=== PATIENT | male | born 1955 | race Caucasian/White ===

== ENCOUNTER 2017-01-10 19:28 | Emergency (ER) | payer OTHER ==
[~2017-01-10] VITALS: Ht 170.2 cm; Wt 129.5 kg
[~2017-01-10 19:28] MED LIST: LEVO100T87 PO; LEVO200T6 PO
[2017-01-10 19:57] VITALS: Ht 170.2 cm; Wt 129.5 kg
[2017-01-10] MEDS ORDERED: HYDR-902 PO (20:24)
[2017-01-10] MEDS ORDERED: IBUP-1542 PO (20:24)
[2017-01-10] MEDS ORDERED: PEN500 PO (20:24)
[2017-01-10 20:52] VITALS: BP 168/95; PULSE 82; RESP 22; TEMP 98.3
--- NOTE | 2017-01-10 21:44 | ERD ---
ER Documentation Chief Complaint Date/Time DATE: 01/10/17 TIME: 21:43 Chief Complaint RT SIDED TOOTHACHE SINCE MONDAY. HX DENTAL ABSCESS HPI 61-year-old male presents to the emergency department with right sided lower tooth pain that started 2 days ago, and swelling. He states that he is going to try seek to see a dentist tomorrow however comes in due to pain after taking ibuprofen 600 mg. He has no trouble swallowing, voice changes, drooling. He denies any fevers. ROS All systems reviewed and are negative except as per history of present illness. Medications Home Meds Active Scripts Ibuprofen* (Motrin*) 600 Mg Tab, 600 MG PO Q6, #30 TAB Prov:ALIVIA DE ANDA PA-C 01/10/17 Penicillin V Potassium* (Penicillin V K*) 500 Mg Tab, 500 MG PO QID for 10 Days , TAB Prov:ALIVIA DE ANDA PA-C 01/10/17 Hydrocodone/Acetaminophen ([place] 10-325 Tablet) 1 Each Tablet, 1 TAB PO Q6H Y for PAIN, #7 TAB Prov:ALIVIA DE ANDA PA-C 01/10/17 Reported Medications Levothyroxine Sodium* (Levothyroxine Sodium*) 200 Mcg Tablet, 200 MCG PO BEFORE BREAKFAST, #30 TAB PER PT TAKES 200 MCG BY MOUTH MONDAY AND MONDAY TAKES 100 MCG MONDAY TO FRIDAYS 01/20/16 Levothyroxine Sodium* (Levothyroxine Sodium*) 100 Mcg Tablet, 100 MCG PO BEFORE BREAKFAST, #30 TAB PER PT TAKES LEVOTHYROXINE 100 MCG BY MOUTH FROM MONDAY TO MONDAY AND ALTERNATES WITH 200 MCG ON MONDAY AND MONDAY 01/20/16 Allergies Allergies: Coded Allergies: No Known Allergy (Unverified , 08/03/16) PMhx/Soc History of Surgery: Yes (APPENDECTOMY,TONSILECTOMNY,LEFT ELBOW,CARPAL TUNNEL) Anesthesia Reaction: No Hx Neurological Disorder: No Hx Respiratory Disorders: No Hx Cardiac Disorders: No Hx Psychiatric Problems: No Hx Miscellaneous Medical Probl: Yes (HYPOTHYROID) Hx Alcohol Use: No Hx Substance Use: No Hx Tobacco Use: No Smoking Status: Never smoker Physical Exam Vitals Vital Signs Date Time Temp Pulse Resp B/P Pulse Ox O2 Delivery O2 Flow Rate FiO2 01/10/17 20:52 98.3 82 22 168/95 98 Room Air 01/10/17 19:57 98.9 80 16 169/89 98 Physical Exam General: Well-developed, well-nourished. The patient appears in no acute distress. HEENT: Head is normocephalic, atraumatic. No scleral icterus. Right lower molar is intact, the tooth adjacent to this is a tender tooth with palpation, there is slight swelling on the right cheek, there is no trismus, voice changes , drooling, oropharynx is clear. Neck: Supple. Nontender. Lungs: Clear to auscultation. Normal air movement. Heart: Regular rate and rhythm. S1 and S2 are normal. No murmurs, gallops, or rubs. Abdomen: Nondistended. Extremities: No clubbing or cyanosis. Moving extremities x 4. No weakness. Neurologic: Alert and oriented 3. No focal deficits. Normal speech and gait. Skin: Normal turgor. No rash or lesions. Procedures/MDM 61-year-old male comes in with a dental infection, differential diagnosis includes gingivitis, tooth abscess, Denzel's angina, retropharyngeal abscess, peritonsillar abscess and among others. There are no signs of any airway threatening process, patient is able to speak, small and open mouth fully without any difficulty. He will be given antibiotics, pain medication and was advised to follow-up with a dentist tomorrow. Patient's blood pressure was elevated (>120/80) but appears stable without evidence of hypertension emergency or urgency. The patient was counseled about the risks of hypertension and urged to pursue outpatient monitoring and therapy within a week with their primary care physician. Departure Diagnosis: Primary Impression: Toothache Condition: Good Patient Instructions: Dental Abscess Additional Instructions: Follow-up with your dentist tomorrow. Return sooner for any worsening or new symptoms. ALIVIA DE ANDA PA-C Jan 10, 2017 21:44
== END 2017-01-10 20:51 | disposition home or self-care (01) ==
LOC: FTE 19:28
DX: K08.89 Other specified disorders of teeth and supporting structures (principal); E03.9 Hypothyroidism, unspecified
CPT/HCPCS: 99284

== ENCOUNTER 2017-02-09 19:53 | Emergency (ER) | payer OTHER ==
[~2017-02-09] VITALS: Ht 167.6 cm; Wt 122.7 kg
[~2017-02-09 19:53] MED LIST changes: +HYDR-902 PO; +IBUP-1542 PO; +PEN500 PO
[2017-02-09 19:54] VITALS: Ht 167.6 cm; Wt 122.7 kg
[2017-02-09] MEDS ORDERED: ALBUTEROL 0.083% (NEB) 2.5 MG/3 ML AMP HHN STA ×2 (20:54→22:24)
[2017-02-09] MEDS ORDERED: predniSONE 20 MG TAB PO ONE (21:00)
[2017-02-09] MEDS ORDERED: IPRATROPIUM (NEB) 0.5 MG/2.5 ML AMP HHN ONE ×2 (21:00→22:30)
[2017-02-09] MEDS ORDERED: ACETAMINOPHEN 325 MG TAB PO ONE (21:30)
--- NOTE | 2017-02-09 22:13 | RADRPT ---
PROCEDURE: XR Chest. CLINICAL INDICATION: cough TECHNIQUE: Single frontal view of the chest was obtained. COMPARISON: None available FINDINGS: The cardiomediastinal silhouette is normal size. Pulmonary vasculature is within normal limits. Th ere is right mid lung atelectasis or minor fissure pleural thickening.. No signs of pleural fluid or pneumothorax are seen. The osseous structures and soft tissues are unre markable. IMPRESSION: No visualized consolidation or edema. Right mid lung atelectasis or minor fissure pleural thickenin g. RPTAT: HBST .Hermilo Carson MD, Date Time Electronically viewed and signed by .Hermilo Carson MD, on 02/09/2017 22:13 .T/
[2017-02-09] MEDS ORDERED: SOD CHLORIDE 0.9% 1,000 ML IV ONE (22:30)
[2017-02-09] MEDS ORDERED: IBUPROFEN 600 MG TAB PO ONE (22:30)
[2017-02-09 23:15] LABS: ADD SCAN DIFF NO
[2017-02-09 23:17] LABS: BASOPHILS % 0.2 % (0.0-2.0); HEMATOCRIT 41.8 % (42.0-52.0); HEMOGLOBIN 14.2 g/dl (14.0-18.0); LYMPHOCYTES # 0.9 10^3/ul (0.8-2.9); LYMPHOCYTES % 7.2 % (15.0-51.0); MEAN CORPUSCULAR HEMOGLOBIN 31.1 pg (29.0-33.0); MEAN CORPUSCULAR VOLUME 91.7 fl (82.0-101.0); MEAN PLATELET VOLUME 10.4 fl (7.4-10.4); MONOCYTE # 0.7 10^3/ul (0.3-0.9); MONOCYTES % 5.6 % (0.0-11.0); NEUTROPHIL # 10.6 10^3/ul (1.6-7.5); NEUTROPHILS % 86.7 % (39.0-77.0); PLATELET COUNT 220 10^3/UL (140-415); RED BLOOD COUNT 4.56 10^6/ul (4.70-6.10); RED CELL DISTRIBUTION WIDTH 13.3 % (11.5-14.5); WHITE BLOOD COUNT 12.3 10^3/ul (4.8-10.8)
[2017-02-09 23:34] LABS: PROTIME 13.2 Sec (12.2-14.2)
[2017-02-09 23:36] LABS: ALBUMIN 4.8 g/dl (3.3-4.9); CHLORIDE 92 mmol/L (97-110); POTASSIUM 3.7 mmol/L (3.5-5.1); SODIUM 134 mmol/L (135-144)
[2017-02-09 23:38] LABS: ANION GAP 20 (8-16); BILIRUBIN,INDIRECT 0.5 mg/dl (0-1.1); BILIRUBIN,TOTAL 0.5 mg/dl (0.2-1.3); CARBON DIOXIDE 26 mmol/L (21-31); CREATININE 0.86 mg/dl (0.61-1.24)
[2017-02-09 23:39] LABS: ALANINE AMINOTRANSFERASE 48 IU/L (13-69); ALBUMIN/GLOBULIN RATIO 1.29; ALKALINE PHOSPHATASE 69 IU/L (42-121); ASPARTATE AMINO TRANSFERASE 41 IU/L (15-46); BLOOD UREA NITROGEN 11 mg/dl (7-20); CALCIUM 8.9 mg/dl (8.4-10.2); GLUCOSE 159 mg/dl (70-220); TOTAL PROTEIN 8.5 g/dl (6.1-8.1)
[2017-02-09 23:50] LABS: TROPONIN-I < 0.012 ng/ml (0.00-0.12)
[2017-02-10] MEDS ORDERED: PRED20TA PO
[2017-02-10] MEDS ORDERED: ALBU2.5V3 NEB (00:01)
[2017-02-10] MEDS ORDERED: AZIT250T94 PO (00:01)
--- NOTE | 2017-02-10 00:08 | ERD ---
ER Documentation Chief Complaint Date/Time DATE: 02/10/17 TIME: 00:03 Chief Complaint SOB WITH FEVER, COUGH/FLU-LIKE SX X FEW DAYS, HX ASTHMA, RR EVEN/UNLABORED HPI This patient is a 61-year-old male with past medical history of asthma presenting to the emergency department with shortness of breath, fever, cough, ongoing for the past 3 days. Additionally the patient has had shortness of breath for 1 week when walking from his home office to his kitchen in his house. The patient is taking albuterol at home with only mild relief of symptoms. The patient denies urinary symptoms, nausea, vomiting, diarrhea, or other symptoms at this time. ROS All systems reviewed and are negative except as per history of present illness. Medications Home Meds Active Scripts Albuterol Sulfate* (Albuterol Sulfate* Neb) 0.083%-3 Ml Neb, 2.5 MG NEB Q4 Y for SHORTNESS OF BREATH, #30 EA Prov:STEPHY SPANN PA-C 02/10/17 Azithromycin* (Zithromax*) 250 Mg Tablet, 250 MG PO .ZPACK DIRECTED, #6 TAB TAKE 500 MG (2 TABS) THE FIRST DAY THEN 250 MG (1 TAB) DAYS 2-5 Prov:STEPHY SPANN PA-C 02/10/17 Prednisone* (Prednisone*) 20 Mg Tab, 40 MG PO DAILY for 5 Days, #10 TAB Prov:STEPHY SPANN PA-C 02/10/17 Ibuprofen* (Motrin*) 600 Mg Tab, 600 MG PO Q6, #30 TAB Prov:ALIVIA DE ANDA PA-C 01/10/17 Penicillin V Potassium* (Penicillin V K*) 500 Mg Tab, 500 MG PO QID for 10 Days , TAB Prov:ALIVIA DE ANDA PA-C 01/10/17 Hydrocodone/Acetaminophen ([place] 10-325 Tablet) 1 Each Tablet, 1 TAB PO Q6H Y for PAIN, #7 TAB Prov:ALIVIA DE ANDA PA-C 01/10/17 Reported Medications Levothyroxine Sodium* (Levothyroxine Sodium*) 200 Mcg Tablet, 200 MCG PO BEFORE BREAKFAST, #30 TAB PER PT TAKES 200 MCG BY MOUTH MONDAY AND MONDAY TAKES 100 MCG MONDAY TO FRIDAYS 01/20/16 Levothyroxine Sodium* (Levothyroxine Sodium*) 100 Mcg Tablet, 100 MCG PO BEFORE BREAKFAST, #30 TAB PER PT TAKES LEVOTHYROXINE 100 MCG BY MOUTH FROM MONDAY TO MONDAY AND ALTERNATES WITH 200 MCG ON MONDAY AND MONDAY 01/20/16 Allergies Allergies: Coded Allergies: No Known Allergy (Unverified , 08/03/16) PMhx/Soc History of Surgery: Yes (APPENDECTOMY,TONSILECTOMNY,LEFT ELBOW,CARPAL TUNNEL) Anesthesia Reaction: No Hx Neurological Disorder: No Hx Respiratory Disorders: No Hx Cardiac Disorders: No Hx Psychiatric Problems: No Hx Miscellaneous Medical Probl: Yes (HYPOTHYROID) Hx Alcohol Use: No Hx Substance Use: No Hx Tobacco Use: No Smoking Status: Never smoker FmHx Noncontributory for chief complaint Physical Exam Vitals Vital Signs Date Time Temp Pulse Resp B/P Pulse Ox O2 Delivery O2 Flow Rate FiO2 02/09/17 22:46 2.0 02/09/17 22:45 103 24 96 Nasal Cannula 2.0 02/09/17 21:22 100.9 28 02/09/17 21:03 88 24 93 21 02/09/17 19:54 101.5 97 20 153/71 96 Physical Exam Const: The patient is in mild distress secondary to difficulty breathing. Head: Atraumatic Eyes: Normal Conjunctiva ENT: Normal External Ears, Nose and Mouth. Neck: Full range of motion..~ No meningismus. Resp: The patient has inspiratory and expiratory wheezing to all lung smyth. There are no crackles auscultated. There are no retractions. Cardio: Regular rate and rhythm, no murmurs Abd: Soft, non tender, non distended. Normal bowel sounds Skin: No petechiae or rashes Back: No midline or flank tenderness Ext: No cyanosis, or edema Neur: Awake and alert Psych: Normal Mood and Affect Result Diagram: 02/09/17 2305 02/09/17 2305 Results 24 hrs Laboratory Tests Test 02/09/17 23:05 White Blood Count 12.310^3/ul Red Blood Count 4.5610^6/ul Hemoglobin 14.2g/dl Hematocrit 41.8% Mean Corpuscular Volume 91.7fl Mean Corpuscular Hemoglobin 31.1pg Mean Corpuscular Hemoglobin Concent 34.0g/dl Red Cell Distribution Width 13.3% Platelet Count 17306^3/UL Mean Platelet Volume 10.4fl Neutrophils % 86.7% Lymphocytes % 7.2% Monocytes % 5.6% Eosinophils % 0.0% Basophils % 0.2% Nucleated Red Blood Cells % 0.0/100WBC Neutrophils # 10.610^3/ul Lymphocytes # 0.910^3/ul Monocytes # 0.710^3/ul Eosinophils # 0.010^3/ul Basophils # 0.010^3/ul Nucleated Red Blood Cells # 0.010^3/ul Prothrombin Time 13.2Sec Prothrombin Time Ratio 1.0 INR International Normalized Ratio 1.00 Activated Partial Thromboplast Time 28.0Sec Sodium Level 134mmol/L Potassium Level 3.7mmol/L Chloride Level 92mmol/L Carbon Dioxide Level 26mmol/L Anion Gap 20 Blood Urea Nitrogen 11mg/dl Creatinine 0.86mg/dl Glucose Level 159mg/dl Lactic Acid Level 2.2mmol/L Calcium Level 8.9mg/dl Total Bilirubin 0.5mg/dl Direct Bilirubin 0.00mg/dl Indirect Bilirubin 0.5mg/dl Aspartate Amino Transf (AST/SGOT) 41IU/L Alanine Aminotransferase (ALT/SGPT) 48IU/L Alkaline Phosphatase 69IU/L Troponin I < 0.012ng/ml Total Protein 8.5g/dl Albumin 4.8g/dl Globulin 3.70g/dl Albumin/Globulin Ratio 1.29 Lipase 51U/L Current Medications Medications (Trade) Dose Ordered Sig/Isaac Route PRN Reason Start Time Stop Time Status Last Admin Dose Admin Prednisone (Prednisone) 40 mg ONCE ONCE PO 02/09/17 21:00 02/09/17 21:01 DC 02/09/17 21:18 Albuterol (Proventil 0.083% (Neb)) 2.5 mg ONCE STAT N 02/09/17 20:54 02/09/17 20:56 DC 02/09/17 21:03 Ipratropium Banner (Atrovent 0.02% (Neb)) 0.5 mg ONCE ONCE N 02/09/17 21:00 02/09/17 21:01 DC 02/09/17 21:03 Acetaminophen (Tylenol Tab) 650 mg ONCE ONCE PO 02/09/17 21:30 02/09/17 21:31 DC 02/09/17 21:30 Albuterol (Proventil 0.083% (Neb)) 2.5 mg ONCE STAT HHN 02/09/17 22:24 02/09/17 22:26 DC 02/09/17 22:44 Ipratropium [place]anner (Atrovent 0.02% (Neb)) 0.5 mg ONCE ONCE HHN 02/09/17 22:30 02/09/17 22:31 DC 02/09/17 22:44 Ibuprofen 600 mg 600 mg ONCE ONCE PO 02/09/17 22:30 02/09/17 22:31 DC 02/09/17 22:38 Sodium Chloride (NS) 1,000 ml @ 1,000 mls/hr Q1H ONCE IV 02/09/17 22:30 02/09/17 23:29 DC 02/09/17 22:40 Procedures/[facility] EMERGENCY DEPARTMENT COURSE / MEDICAL DECISION MAKING: This is a 61-year-old male who comes to the emergency room secondary to complaints of shortness of breath, cough, fevers, wheezing. The patient was given medication nebulizer, p.o. Tylenol and ibuprofen, and prednisone in the department. On re-evaluation, the patient was feeling improved. Temperature reduced in the department. Lab results reviewed and showed slight leukocytosis with left shift but not significant. Radiology: PROCEDURE: XR Chest. CLINICAL INDICATION: cough TECHNIQUE: Single frontal view of the chest was obtained. COMPARISON: None available FINDINGS: The cardiomediastinal silhouette is normal size. Pulmonary vasculature is within normal limits. There is right mid lung atelectasis or minor fissure pleural thickening.. No signs of pleural fluid or pneumothorax are seen. The osseous structures and soft tissues are unremarkable. IMPRESSION: No visualized consolidation or edema. Right mid lung atelectasis or minor fissure pleural thickening. RPTAT: HBST .Hermilo Carson MD, MD Date Time Electronically viewed and signed by .Hermilo Carson MD, on 02/09/2017 22:13 .T/ CC: STEPHY SPANN PA-C EKG: Interpreted by ED physician Rate/Rhythm: Sinus tachycardia with a rate of [address] bpm. QRS, ST, T-waves: [No changes consistent w/ acute ischemia] Impression: [No evidence of ischemia or arrhythmia] The primary diagnosis is cough. Secondary diagnosis is wheezing. Other diagnosis includes bronchitis. I have low suspicion for acute coronary ischemia, status asthmaticus, pneumothorax, pulmonary embolism, septicemia, or other emergent conditions at this time. This case was discussed with Dr. Jennifer Bah, who agreed with the ED course. Discharge: I have discussed the lab results and diagnostic findings with the patient and answered any questions or concerns. The patient was discharged with a prescription for medication nebulizer, albuterol, prednisone, and azithromycin. The patient was advised to followup with their PMD in 1-2 days and to return to the Emergency Department if there are any new or worsening symptoms. The patient understood and agreed with the diagnosis, treatment and plan. The patient is stable for discharge at this time. Departure Diagnosis: Primary Impression: Cough Additional Impressions: Wheezing Bronchitis Condition: Fair Patient Instructions: Bronchitis With Wheezing (Adult), Cough, Chronic, Uncertain Cause, (Adult) Additional Instructions: Follow up with your PCP within the next 1-3 days for a more thorough evaluation and a possible referral to a specialist. Return the the emergency department immediately if symptoms worsen or change. If you have any questions regarding medications, ask your pharmacist or us before you leave. If any adverse reactions, occur while taking your medications, discontinue the treatment and return to the emergency department immediately. If any new or worsening symptoms, uncontrolled fevers, or other unexplained symptoms occur, return to the emergency department immediately. Take your medications as directed, and complete the entire course of treatment. STEPHY SPANN PA-C February 10, 2017 00:08
[2017-02-10 00:25] VITALS: BP 148/74; PULSE 99; RESP 28; TEMP 99
== END 2017-02-10 00:25 | disposition home or self-care (01) ==
LOC: FTE 19:53
DX: R05 Cough (principal); J20.9 Acute bronchitis, unspecified; E03.9 Hypothyroidism, unspecified; R06.2 Wheezing; J45.909 Unspecified asthma, uncomplicated
CPT/HCPCS: 36415; 71010; 80053; 83605; 83690; 84484; 85025; 85610; 85730; 93005; 94640; 94664; J7030; J7512; Z7502; Z7610